=== PATIENT | female | born 1945 | race Hispanic/Latino ===

== ENCOUNTER 2017-06-05 12:56 | Outpatient (CLI) | payer MEDICARE ==
[2017-06-05 13:47] LABS: Hematocrit 41.9 % (30.3-42.9); Hemoglobin 13.7 gm/dl (10.1-14.3); Mean Corpuscular HGB Conc 33 % (30-34); Mean Corpuscular Hemoglobin 37 pg (28-32); Mean Corpuscular Volume 112 fl (79-97); Platelet Count 323 K/mm3 (140-440); Red Blood Count 3.74 M/mm3 (3.65-5.03); Red Cell Distribution Width 14.8 % (13.2-15.2)
[2017-06-05 14:10] LABS: Alanine Aminotransferase 18 units/L (7-56); Albumin 3.8 g/dL (3.9-5); BUN/Creatinine Ratio 18; Blood Urea Nitrogen 7 mg/dL (7-17); Calcium 8.9 mg/dL (8.4-10.2); Chol/HDL Ratio 2.46 %; HDL Cholesterol 43 mg/dL (40-59); Hemolysis Index 8; LDL Cholesterol,Direct 49 mg/dL (50-130)
--- NOTE | 2017-06-05 16:41 | Cat Scan Report ---
FINAL REPORT PROCEDURE: CT CHEST WO CON TECHNIQUE: Computerized axial tomography of the chest was performed without contrast material. This study is performed without intravenous contrast and the sensitivity for pathology, including neoplasms, adenopathy, abscess, pulmonary embolism and aortic dissection, is reduced. HISTORY: PULMONARY FIBROSIS COMPARISON: No prior studies are available for comparison. TECHNICAL QUALITY: Satisfactory. FINDINGS: Heart and pericardium: Heart is prominent in size. There is mild pericardial thickening or fluid inferiorly, measuring up to 5 millimeters in thickness. Thoracic aorta: Aorta is normal in caliber. There is atherosclerotic calcification. Pulmonary vasculature: Normal. Lymph nodes: Bilateral subcentimeter mediastinal and hilar lymph nodes are present. Lungs: There are mild diffuse emphysematous changes. There is no evidence of pulmonary fibrosis. There is mild atelectasis or scarring abutting the the left heart border in the lingula. Pleural space: Small bilateral layering pleural effusions are present, left greater than right. Musculoskeletal structures: There is mild retrolisthesis of L2 on L3, possibly related to facet arthritic changes of the level.. Upper abdominal structures: No significant abnormality. IMPRESSION: Small bilateral layering pleural effusions. No significant pulmonary fibrotic changes are seen. Prominent heart size.
--- NOTE | 2017-06-05 23:37 | XRay Report ---
FINAL REPORT PROCEDURE: XR CHEST ROUTINE 2V TECHNIQUE: PA and lateral chest radiographs were obtained. CPT 40296 HISTORY: PULMONARY FIBROSIS COMPARISON: No prior studies are available for comparison. FINDINGS: Heart: The heart is borderline enlarged. Mediastinum/Vessels: Normal. Lungs/Pleural space: There is an infiltrate in the lingular segment of the left upper lung. The lungs are otherwise clear and expanded. There are no effusions or pneumothoraces... Bony thorax: No acute osseous abnormality. Other: IMPRESSION: The heart is borderline enlarged. There is an infiltrate in the lingular segment of the left upper lung. The lungs are otherwise clear and expanded. There are no effusions or pneumothoraces... .
[2017-06-08 07:31] LABS: Myeloperoxidase Antibody <1.0 AI (<1.0)
[2017-06-10 22:48] LABS: ANA Screen, IFA Positive (Negative)
== END 2017-06-05 12:57 | disposition home or self-care (01) ==
LOC: CT 12:56
PROVIDERS: ATTEND Internal Medicine
DX: J84.112 Idiopathic pulmonary fibrosis (principal); J98.11 Atelectasis; J90 Pleural effusion, not elsewhere classified; I70.0 Atherosclerosis of aorta; R91.8 Other nonspecific abnormal finding of lung field
CPT/HCPCS: 36415; 71046; 71250; 80053; 80061; 84436; 84443; 85027; 86021; 86038; 86618